=== PATIENT | female | born 1985 | race Caucasian/White ===

== ENCOUNTER 2019-05-29 12:41 | Observation (INO) | payer OTHER, SELFPAY ==
[2019-05-29] MEDS ORDERED: Lidocaine 1% PF 5 ML VIAL ONE (14:38)
[2019-05-29] MEDS ORDERED: Glycopyrrolate 0.2 MG/ML 5 ML SYRINGE ONE (14:38)
[2019-05-29] MEDS ORDERED: PHENYLEPHRINE-NS 100 MCG/ML 10 ML SYRINGE ONE (14:38)
[2019-05-29] MEDS ORDERED: Rocuronium Bromide 10 MG/ML (10ML VIAL) ONE (14:38)
[2019-05-29] MEDS ORDERED: Dexamethasone 20 MG/5 ML VIAL ONE (14:38)
[2019-05-29] MEDS ORDERED: PROPOFOL 200 MG/20 ML VIAL ONE (14:38)
[2019-05-29] MEDS ORDERED: Ondansetron PF 4 MG/2 ML Vial ONE (14:38)
[2019-05-29 14:41] LABS: #Lymphocytes 1.2 thou/uL (1.20-3.40); #Monocytes 0.7 thou/uL (0.11-0.59); #Neutrophils 10.2 thou/uL (1.40-6.50); %Basophils 0.2 % (0.0-1.0); %Eosinophils 0.1 % (0.0-10.0); %Lymphocytes 9.9 % (21.0-51.0); %Monocytes 5.5 % (0.0-10.0); %Neutrophils 84.3 % (42.0-75.0); Hemoglobin 9.7 g/dL (12.0-16.0); Mean Corpuscular HGB CONC 34.8 g/dL (32.0-36.0); Mean Corpuscular Volume 94.8 fL (78.0-98.0); Platelet Count 217 thou/uL (130-400); RBC Distribution Width 11.1 % (11.5-14.5); Red Blood Cell (RBC) Count 2.95 mill/uL (4.20-5.40); White Blood Cell (WBC) Count 12.1 thou/uL (4.8-10.8)
[2019-05-29 15:09] LABS: ALT (SGPT) 9 U/L (8-55); AST (SGOT) 13 U/L (5-34); Alkaline Phosphatase 37 U/L (40-110); Anion Gap 12 mmol/L (10-20); BUN (Urea Nitrogen) 11 mg/dL (7.0-18.7); Bilirubin, Total 0.6 mg/dL (0.2-1.2); Calc. Creatinine Clearance 0 mL/min (70-130); Carbon Dioxide 19 mmol/L (22-29); Chloride 108 mmol/L (98-107); Estimated GFR-MDRD Greater than 90; Globulin 2.1 g/dL (2.4-3.5); Glucose 127 mg/dL (70-105); Potassium 3.9 mmol/L (3.5-5.1); Protein, Total 6.1 g/dL (6.0-8.3); Sodium 135 mmol/L (136-145)
--- NOTE | 2019-05-29 15:26 | HP ---
TIME OF SERVICE: 1500 hours. PRESENTING COMPLAINT: Abdominal pain for approximately 15 hours. HISTORY OF PRESENT ILLNESS: Ms. Clark is a 33-year-old, 3, para 1, AB 2, who is midcycle and not on contraceptive. She reports that at midnight last night she had sudden onset of bilateral lower quadrant pain. She states it gotten progressively worse. She rates it 10/10 prior to the administration of morphine in the emergency room. She reports that she has pain in her right shoulder when she lays down flat. She denies nausea or vomiting. SALES ASSISTANT HISTORY: Midcycle, status post x1 with Dr. Shantell Pradhan in 2017. Status post miscarriage x1, status post elective termination approximately 6 months ago. Positive history of chlamydia in the distant past. PAST MEDICAL HISTORY: Denies. PAST SURGICAL HISTORY: Denies. ALLERGIES: DENIES. MEDICATIONS: None. SOCIAL HISTORY: Denies tobacco or alcohol or IV drug abuse. FAMILY HISTORY: Noncontributory. REVIEW OF SYSTEMS: Noncontributory. PHYSICAL EXAMINATION: GENERAL: White female resting comfortably at this time. VITAL SIGNS: Pulse 63, blood pressure 95/63. HEENT: Within normal limits. LUNGS: Clear to auscultation bilaterally. HEART: Regular rhythm. ABDOMEN: Soft. However, she has discomfort and guarding, especially in the lower quadrants and when lowering from a seating position to a laying flat position, she reports right shoulder pain. Pelvic exam was deferred by myself was reported as unremarkable [facility]. EXTREMITIES: Without clubbing, cyanosis, or edema. LABORATORY DATA: On initial presentation, she had a repeat hemoglobin prior to [facility] was 9.4 with hematocrit of 28%, normal white count. The patient had a negative qualitative serum hCG. CT and ultrasound revealed complex organized material in the posterior cul-de-sac with free fluid noted in the posterior cul-de-sac, gutters, and perihepatic as well. Uterus was read as normal on ultrasound. However, my read of it reveals that there maybe some thickening in the endometrium. The patient is midcycle. IMPRESSION: Significant hemoperitoneum with likely hemorrhagic corpus luteum cyst, status post ovulation with significant drop in hemoglobin, question thickened endometrium. PLAN: Discussed with the patient options at this point in time. The patient has been n.p.o. for greater than 12 hours. We will proceed with diagnostic laparoscopy, possible laparoscopic salpingo-oophorectomy, and possible D and C. Job ID: [id number]
[2019-05-29] MEDS ORDERED: HYDROmorphone 0.5 MG/0.5 ML SYRINGE ONE (18:51)
[2019-05-29] MEDS ORDERED: Midazolam HCl 2 mg/2 ml Vial ONE (18:51)
[2019-05-29] MEDS ORDERED: Fentanyl 100 MCG/2 ML VIAL ONE (18:51)
[2019-05-29] MEDS ORDERED: Lidocaine 2% Jelly 5 ML TUBE ONE (18:52)
[2019-05-29] MEDS ORDERED: Bupivacaine 0.25% HCL 30 ML VIAL ONE (18:59)
[2019-05-29] MEDS ORDERED: Lidocaine 1% w/Epinephrine 1:100K 20 ML VIAL ONE (18:59)
[2019-05-29] MEDS ORDERED: Bupivacaine PF 0.5% 30 ML VIAL ONE (18:59)
[2019-05-29] MEDS ORDERED: EPINEPHrine 1 MG/ML AMP ONE (19:00)
[2019-05-29] MEDS ORDERED: Ondansetron HCl/PF 4 MG/2 ML Vial IVP PRN (20:25)
[2019-05-29] MEDS ORDERED: Meperidine HCl/PF 25 MG/ML VIAL SLOW IVP PRN ×2 (20:25)
[2019-05-29] MEDS ORDERED: HYDROmorphone 2 MG/ML VIAL SLOW IVP PRN (20:25)
[2019-05-29] MEDS ORDERED: Promethazine HCl 25 MG/ML VIAL IM PRN ×2 (20:25→20:33)
[2019-05-29] MEDS ORDERED: Ketorolac Tromethamine 30 MG/ML VIAL IVP PRN (20:25)
[2019-05-29] MEDS ORDERED: Promethazine HCl 25 MG/ML VIAL SLOW IVP PRN (20:25)
[2019-05-29] MEDS ORDERED: Simethicone Chewable 80 MG TAB PO PRN (20:33)
[2019-05-29] MEDS ORDERED: Zolpidem Tartrate 5 MG TAB PO PRN (20:33)
[2019-05-29] MEDS ORDERED: Morphine 4 MG/ML VIAL SLOW IVP PRN (20:33)
[2019-05-29] MEDS ORDERED: HYDROcodone/Acetaminophen 5/325 mg Tablet PO PRN ×2 (20:33)
[2019-05-29] MEDS ORDERED: Morphine 2 MG/ML SYRINGE SLOW IVP PRN (20:33)
[2019-05-29] MEDS ORDERED: diphenhydrAMINE 25 MG CAP PO PRN (20:33)
[2019-05-29] MEDS ORDERED: Ondansetron PF 4 MG/2 ML Vial IVP PRN (20:33)
[2019-05-29] MEDS: Lactated Ringer's 1,000 ML IV SCH (21:47)
[2019-05-29] MEDS: Ketorolac Tromethamine 30 MG/ML VIAL IVP SCH (23:22)
[2019-05-30 01:06] VITALS: BMI 23.7
[2019-05-30] MEDS: Ketorolac Tromethamine 30 MG/ML VIAL IVP SCH (05:33)
[2019-05-30 05:49] LABS: Hemoglobin 8.3 g/dL (12.0-16.0); Mean Corpuscular HGB CONC 32.9 g/dL (32.0-36.0); Mean Corpuscular Hemoglobin 32.1 pg (27.0-31.0); Mean Corpuscular Volume 97.8 fL (78.0-98.0); Mean Platelet Volume 7.1 fL (7.4-10.4); Platelet Count 180 thou/uL (130-400); RBC Distribution Width 11.2 % (11.5-14.5); Red Blood Cell (RBC) Count 2.59 mill/uL (4.20-5.40); White Blood Cell (WBC) Count 10.9 thou/uL (4.8-10.8)
[2019-05-30] MEDS: Lactated Ringer's 1,000 ML IV SCH (06:20)
[2019-05-30] MEDS ORDERED: traMADol HCl 50 MG TAB PO PRN (06:53)
--- NOTE | 2019-05-30 08:21 | DIS ---
DATE OF ADMISSION: 05/29/2019 DATE OF DISCHARGE: 05/30/2019 TIME OF SERVICE: 0730 hours. SUMMARY OF HOSPITAL COURSE: The patient was admitted on 05/29 with hemoperitoneum with suspected hemorrhagic corpus luteum cyst. She underwent laparoscopy, which found 1500 mL of intraperitoneal hemorrhage and a bleeding corpus luteum cyst on the distal left ovary. Blood in the abdomen was evacuated and the ovarian cyst was cauterized. The patient tolerated the procedure well. Postoperatively, she has done well. PHYSICAL EXAMINATION: VITAL SIGNS: Temperature 98.7, pulse 84, respirations 18, and blood pressure 84/50. LUNGS: Clear to auscultation bilaterally. HEART: Regular rhythm. ABDOMEN: Soft and nontender. Flat, nondistended. No rebound. No guarding. Incision is intact this morning. EXTREMITIES: Without clubbing, cyanosis, or edema. LABORATORY STUDIES: Hematocrit this morning is 25.3%, down from 28% preoperatively. IMPRESSION: Status post laparoscopy with intraabdominal hemorrhage, now with anemia secondary to an acute intraoperative blood loss. Well compensated and tolerated. PLAN: Discharge home. The patient does take p.o. [id number] iron, [place], sent to [facility] and the patient to follow up at [facility] [place] as needed. Job ID: [id number]
[2019-05-30 08:29] VITALS: BP 93/50; TEMP 98.6
--- NOTE | 2019-05-30 12:28 | OP ---
DATE OF PROCEDURE: 05/29/2019 PREOPERATIVE DIAGNOSIS: Hemoperitoneum, suspected hemorrhagic ovarian cyst. POSTOPERATIVE DIAGNOSES: Hemoperitoneum, hemorrhagic left ovarian cyst. PROCEDURE PERFORMED: Laparoscopic evacuation of hemoperitoneum and fulguration of left ovarian cyst. RESERVE OPERATOR: ANESTHESIA: General endotracheal. BLOOD LOSS: 1100 mL. HEMOPERITONEUM: 25 mL intraoperatively. DRAINS: Monreal to gravity, removed at the end of the procedure. COMPLICATIONS: None. DVT PROPHYLAXIS: SCDs. MEDICATIONS: 2 g Ancef preincision. OPERATIVE FINDINGS: 1. Large hemoperitoneum. 2. Ovarian surface hemorrhage at the area of a ruptured corpus luteum cyst at the distal pole of the left ovary. 3. Normal-appearing right ovary and tube. 4. Normal-appearing left tube. 5. Normal-appearing uterus and appendix, liver edge and gallbladder. DISPOSITION: Recovery room, an overnight stay. PATHOLOGY SPECIMENS: None. DESCRIPTION OF PROCEDURE: After obtaining appropriate informed consent, the patient was taken to the operating room, where general endotracheal anesthesia was achieved without difficulty. She was prepped and draped in usual manner in dorsal lithotomy and placed in Evan stirrups. Sliding speculum was placed in the vagina. Cervix was identified and grasped with a single-tooth tenaculum. Hulka manipulator placed inside. Speculum and tenaculum were removed. Monreal catheter was placed. Sr. Media Manager changed his gloves and turned attention to abdominal portion of the procedure. 5 mL was injected at the base of umbilicus. Veress needle placed inside abdominal cavity. Insufflation was carried out with carbon dioxide at max pressure of 15, volume approximately 3 L. 5-mm Optiview trocar technique was used to introduce the scope into the abdominal cavity without trauma to the underlying viscera. Large hemoperitoneum was noted. A left lateral 5-mm trocar was placed under direct visualization. Suction irrigation was carried out in the pelvis, gutters and perihepatic space, and approximately 1100 mL of clotted and nonclotted blood was removed. Suction irrigation was carried out in the pelvis and findings as noted in the operative findings were noted. No other areas of bleeding were noted. The bipolar Kleppinger at a setting of 40 jones was used to coagulate the edge of the ruptured cyst. It was noted to be hemostasis and then Avitene was applied across the surface of the ovary. The abdomen was desufflated of carbon dioxide. Trocars were removed. Hulka was removed. Skin was reapproximated x3 using 4-0 Monocryl and Dermabond. Monreal catheter was removed. The patient was awakened and extubated to recovery room in good condition. Job ID: [id number]
== END 2019-05-30 11:00 | disposition home or self-care (01) ==
LOC: ERS 12:41 → SURG B 15:39
PROVIDERS: ADMIT Obstetrics & Gynecology; ATTEND Obstetrics & Gynecology
PROC: 0UB14ZZ Excision of Left Ovary, Percutaneous Endoscopic Approach (ICD-10-PCS; principal; 2019-05-30)
DX: N83.12 Corpus luteum cyst of left ovary (principal); K66.1 Hemoperitoneum; Z87.59 Personal history of other complications of pregnancy, childbirth and the puerperium
CPT/HCPCS: 36415; 80053; 85025; 85027; 86900; 86901; 96361; 96374; 96376; 99285; G0378; J0171; J0690; J1100; J1170; J1885; J2001; J2250; J2270; J2405; J2704; J3010; S0020

== ENCOUNTER 2020-02-27 10:30 | Outpatient (CLI) | payer OTHER ==
[2020-02-27 20:14] LABS: SARS-CoV-2 MS2 Positive; SARS-CoV-2 N Gene Negative; SARS-CoV-2 S Gene Negative; SARS-CoV-2 by NAA Not Detected (NotDetected); SARS-CoV-2 orf1ab Negative
== END 2020-02-27 10:31 | disposition home or self-care (01) ==
LOC: LABSCS 10:30
PROVIDERS: ATTEND Obstetrics & Gynecology
DX: Z20.828 Contact with and (suspected) exposure to other viral communicable diseases (principal)
CPT/HCPCS: 87635; U0003

== ENCOUNTER 2022-01-28 18:14 | Emergency (ER) | payer BC ==
[2022-01-28] MEDS ORDERED: Morphine 4 MG/ML VIAL ONE ×2 (18:37→20:20)
[2022-01-28] MEDS ORDERED: Ketorolac Tromethamine 30 MG/ML VIAL ONE (18:37)
[2022-01-28 19:03] LABS: #Eosinphils 0.2 thou/uL (0.0-0.7); #Lymphocytes 2.4 thou/uL (1.20-3.40); #Monocytes 0.7 thou/uL (0.11-0.59); #Neutrophils 6.8 thou/uL (1.40-6.50); %Basophils 0.4 % (0.0-1.0); %Eosinophils 1.9 % (0.0-10.0); %Lymphocytes 23.4 % (21.0-51.0); %Monocytes 6.7 % (0.0-10.0); %Neutrophils 67.6 % (42.0-75.0); Hemoglobin 13.3 g/dL (12.0-16.0); Mean Corpuscular HGB CONC 34.1 g/dL (32.0-36.0); Mean Corpuscular Hemoglobin 31.6 pg (27.0-31.0); Mean Corpuscular Volume 92.6 fL (78.0-98.0); Platelet Count 258 thou/uL (130-400); RBC Distribution Width 11.2 % (11.5-14.5); Red Blood Cell (RBC) Count 4.22 mill/uL (4.20-5.40); White Blood Cell (WBC) Count 10.1 thou/uL (4.8-10.8)
[2022-01-28 19:09] LABS: BHCG - Serum Negative (NEGATIVE); Pregs Control Background? CLEAR/WHITE (CLR/WHITE); Pregs Control Bar Appear? YES (CONTROL BAR)
[2022-01-28 19:14] LABS: Bilirubin Negative (Negative); Blood, Urine Negative (Negative); Clarity Turbid (Clear); Glucose, Urine (Dipstick) Normal (Negative); Ketone, Urine 20 mg/dL (Negative); Leukocyte Negative Leu/uL (Negative); Nitrite Negative (Negative); Protein, Urine (Dipstick) 10 mg/dL (Neg-Trace); Specific Gravity, Urine 1.028 (1.002-1.036); Urobilinogen Normal mg/dL (Less than 2)
[2022-01-28 19:24] LABS: ALT (SGPT) 8 U/L (8-55); AST (SGOT) 14 U/L (5-34); Albumin 4.5 g/dL (3.5-5.0); Alkaline Phosphatase 48 U/L (40-110); Anion Gap 15 mmol/L (10-20); BUN (Urea Nitrogen) 16 mg/dL (7.0-18.7); Bilirubin, Total 0.4 mg/dL (0.2-1.2); Calc. Creatinine Clearance 0 mL/min (70-130); Calcium 9.3 mg/dL (7.8-10.44); Carbon Dioxide 21 mmol/L (22-29); Chloride 108 mmol/L (98-107); Estimated GFR 87; Globulin 2.7 g/dL (2.4-3.5); Glucose 102 mg/dL (70-105); Potassium 3.6 mmol/L (3.5-5.1); Protein, Total 7.2 g/dL (6.0-8.3); Sodium 140 mmol/L (136-145)
== END 2022-01-28 20:50 | disposition short-term general hospital (02) ==
LOC: ERS 18:14
DX: N83.202 Unspecified ovarian cyst, left side (principal)
CPT/HCPCS: 76856; 80053; 81003; 84703; 85025; 96374; 96375; 96376; J1885; J2270